=== PATIENT | female | born 1975 | race Caucasian/White ===

== ENCOUNTER 2025-08-11 10:29 | Emergency (ER) | payer BC ==
[~2025-08-11] VITALS: Ht 165.1 cm; Wt 72.3 kg
[2025-08-11 10:39] VITALS: TEMP 98.3
--- NOTE | 2025-08-11 13:18 | RADIOLOGY REPORT ---
EXAM: DI CHEST,SINGLE VIEW Indication: PICC Line Confirmation Technique: Single frontal view of the chest was obtained Comparison: None FINDINGS: Lines and Tubes: Left PICC tip projects over the superior vena cava. Lungs: No focal consolidation. Pleura: No effusion. No pneumothorax. Cardiomediastinal contours: Unremarkable Bones: No acute osseous abnormality. IMPRESSION: No acute cardiopulmonary disease.
--- NOTE | 2025-08-11 15:14 | VASCULAR REPORT ---
Technique: Real-time ultrasound imaging, with color Doppler and compression of the left upper extremity veins Indication: Swelling with PICC line Comparison: None Findings: The left internal jugular vein is patent. The left subclavian vein is thrombosed. The left axillary vein is entirely thrombosed. The left basilic vein is completely thrombosed. The left radial and ulnar veins are patent. Right subclavian vein patent. Impression: Occlusive deep vein thrombosis surrounding the PICC line within the left subclavian, axillary veins. Occlusive thrombus surrounding the left PICC line within the left basilic vein. Findings were communicated to Keri SALAZAR by The scanning technologist.
[2025-08-11 15:31] VITALS: BP 161/92; PULSE 62; RESP 16; O2SAT 98
[2025-08-11 15:36] LABS: MEAN PLATELET VOLUME 8.9 FL (7.4-10.4); RED CELL DISTRIBUTION WIDTH 13.8 % (11.5-14.5)
[2025-08-11 15:52] LABS: CREATININE 0.58 MG/DL (0.40-0.90); TOTAL CARBON DIOXIDE 27.8 MMOL/L (24-32); eCRCL 106 ML/MIN; eGFR > 90 ML/MIN
--- NOTE | 2025-08-11 16:39 | Physician Documentation ---
History of Present Illness ~ Chief Complaint: See Chief Complaint Stated Complaint: PICC LINE SWELLING Time Seen by MD: 12:41 Primary Medical Doctor: [facility] HPI This is a 49-year-old female who presents with intermittent left arm swelling, patient has a PICC line in place due to requiring IV antibiotics after a surgical site infection on her right arm, patient reports that whenever she uses her left arm the entire arm begins swelling in it feels tight. Reports no numbness or tingling to the arm and reports no loss of strength of the arm. Medication Reconciliation Allergies: Coded Allergies: No Known Allergies (Unverified , 08/11/25) Scheduled Apixaban (Eliquis), 1 TAB PO Q12H Past Medical History Past Medical History: *INFECTIOUS DZ* (PICC line due to surgical site infect ion) Past Surgical History: orthopedic surgeries Review of Systems ROS As stated above in the HPI, otherwise all systems are reviewed and negative. Physical Exam Vital Signs: Temperature: 98.3, Source: Oral, Heart Rate: 62, Respiratory Rate: 16, BP: 161/92, Pulse Oximetry: 98, Weight: 72.300 Oxygen Flow Rate: 0 General Appearance VITALS: Reviewed and as above. GENERAL: Alert, nontoxic appearing, no apparent distress. RESPIRATORY: No increased work of breathing, no respiratory distress, speaking in full clear sentences CV: Brisk capillary refill and intact radial pulse to left upper extremity MUSCULOSKELETAL: PICC line in place to left arm, no visible swelling as compared to right, no erythema, no ecchymosis, no tenderness NEURO: Sensation intact to left upper extremity Progress Results/Orders Results/Orders Orders - MAGGI LINDA JET MAN Chest,Single View (08/11/25 12:57) Vl Venous (08/11/25 13:25) Completed Orders - MAGGI LINDA JET MAN Chest,Single View (08/11/25 12:57) Vl Venous (08/11/25 13:25) Cbc/Diff (08/11/25 15:13) BMP (08/11/25 15:13) Apixaban Tablet (Eliquis Tablet) (08/11/25 17:55) Medications Received in ER Medications (Trade) Dose Ordered Sig/Wendy Route PRN Reason Start Time Stop Time Status Last Admin Dose Admin (Eliquis tablet) 10 mg ONCE ONCE PO 08/11/25 18:15 08/11/25 18:16 DC 08/11/25 18:30 10 MG Vital Signs 08/11/25 08/11/25 10:39 15:31 Temp 98.3 Pulse 69 62 Resp 16 16 B/P (MAP) 137/86 161/92 (115) Pulse Ox 97 98 O2 Flow Rate 0 0 Laboratory Tests Test 08/11/25 15:23 White Blood Count 9.1 Red Blood Count 4.22 Hemoglobin 12.2 Hematocrit 36.4 Mean Corpuscular Volume 86.1 Mean Corpuscular Hemoglobin 29.0 Mean Corpuscular Hemoglobin Concent 33.6 Red Cell Distribution Width 13.8 Platelet Count 227 Mean Platelet Volume 8.9 Neutrophils (%) (Auto) 66.9 Lymphocytes (%) (Auto) 22.2 Monocytes (%) (Auto) 6.9 Eosinophils (%) (Auto) 3.3 Basophils (%) (Auto) 0.7 Neutrophils # (Auto) 6.1 Lymphocytes # (Auto) 2.0 Monocytes # (Auto) 0.6 Eosinophils # (Auto) 0.3 Basophils # (Auto) 0.1 CBC Comment Sodium Level 141 Potassium Level 4.1 Chloride Level 104 Carbon Dioxide Level 27.8 Anion Gap 9 Blood Urea Nitrogen 9 Creatinine 0.58 Estimated GFR/1.73 m2 > 90 BUN/Creatinine Ratio 15.5 Glucose Level 100 Calcium Level 9.6 Albumin 3.7 Chemistry Comments EKG/XRAY/CT/US/VASC/MRI Chest X-Ray : Additional Comments Exam: CHEST,SINGLE VIEW EXAM: DI CHEST,SINGLE VIEW Indication: PICC Line Confirmation Technique: Single frontal view of the chest was obtained Comparison: None FINDINGS: Lines and Tubes: Left PICC tip projects over the superior vena cava. Lungs: No focal consolidation. Pleura: No effusion. No pneumothorax. Cardiomediastinal contours: Unremarkable Bones: No acute osseous abnormality. IMPRESSION: No acute cardiopulmonary disease. Electronically Signed by:RICKIE TENORIO MD Date & Time: 08/11/25 1316 Dictated by: RICKIE TENORIO MD Dictation date and time: 08/11/25 1255 I have reviewed and agree with the radiology report. I have reviewed and interpreted the imaging as: PICC line appears in place, no focal consolidation or pneumothorax Vascular : Impression Technologist: Elvis Tai Technique: Real-time ultrasound imaging, with color Doppler and compression of the left upper extremity veins Indication: Swelling with PICC line Comparison: None Findings: The left internal jugular vein is patent. The left subclavian vein is thrombosed. The left axillary vein is entirely thrombosed. The left basilic vein is completely thrombosed. The left radial and ulnar veins are patent. Right subclavian vein patent. Impression: Occlusive deep vein thrombosis surrounding the PICC line within the left subclavian, axillary veins. Occlusive thrombus surrounding the left PICC line within the left basilic vein. Findings were communicated to Keri SALAZAR by The scanning technologist. Dictated by:REZA MATA MD Dictation date and time:08/11/251516 Electronically Signed by: REZA MATA MD Date and Time: 08/11/251516 Transcribed: AD Medical Decision Making Additional information obtaine: N/A Findings This 49-year-old female with PICC line in place to left arm presented with intermittent swelling to left upper extremity, the limb is neurovascularly intact and there appears to be no evidence of infection or complication of the PICC line site however an ultrasound of the area was obtained and demonstrated a DVT to the area extending into the subclavian. It is reassuring patient reports no chest pain or shortness of breath and this time I have low suspicion for pulmonary embolism. Given DVTs of the area patient will require anti coagulation therapy, given has bled score of one and lack of other risk factors patient is appropriate for outpatient management with DOAC, patient is to follow up with the team that placed her PICC line and her primary care provider. She is hemodynamically stable and appropriate for outpatient management. Patient provided careful return to care precautions which she verbalized understanding of. Patient provided follow up instructions and home care instructions which she verbalized understanding of. Differential Dx:Considerations: Include: Cancer, Cellulitis, Congestive heart failure, Compartment syndrome, Deep venous thrombosis, Liver failure, Muscle spasm, Renal faliure, Superfic thrombophlebitis, Venous insufficiency Departure Time of Disposition: 18:31 Disposition: 01 HOME / SELF CARE / HOMELESS Impression: Primary Impression: DVT of axillary vein, acute left Additional Impression: Deep vein thrombosis (DVT) of brachial vein of left upper extremity Qualified Codes: I82.622 - Acute embolism and thrombosis of deep veins of left upper extremity Condition: Improved Discharge Instructions: Deep Vein Thrombosis Additional Instructions: Please take the prescribed Eliquis according to the prescribed directions, you will take 10 mg twice a day for one-week and then 5 mg twice a day after that, follow up as soon as possible with your team at [facility] and your primary care provider. Please return to the emergency department for any new or worsening concerning symptoms including but not limited to chest pain, shortness of breath, or worsening swelling to your arm. Referrals: NO PRIMARY CARE PROVIDER (PCP) Prescriptions Apixaban (ELIQUIS) 5 Mg Tablet 1 TAB PO Q12H for 30 Days, #74 TAB 0 Refills Please take two pills (10mg) twice a day for the 1st week and one pill(5mg) twice a day after that Prov: MAGGI LINDA 08/11/25 Education Educated: Patient, Family Educated regarding: diagnosis, treatment, prognosis, need for follow up Signature Scribe Signature: No scribe Attestation: The note accurately reflects work and decisions made by me.RUDDY Allen 08/11/25 23:34 MAGGI LINDA Aug 11, 2025 16:39
[2025-08-11] MEDS ORDERED: APIX5TAB3 PO (18:36)
== END 2025-08-11 18:45 | disposition home or self-care (01) ==
LOC: ER 10:29
DX: I82.A12 Acute embolism and thrombosis of left axillary vein (principal); I82.622 Acute embolism and thrombosis of deep veins of left upper extremity; Z98.890 Other specified postprocedural states; Z79.899 Other long term (current) drug therapy
CPT/HCPCS: 36415; 71045; 80048; 85025; 93971; 99284